=== PATIENT | female | born 1970 | race Caucasian/White ===

== ENCOUNTER 2018-10-28 16:43 | Emergency (ER) | payer MEDICAID ==
[~2018-10-28] VITALS: Ht 160 cm; Wt 63.6 kg
[2018-10-28 16:45] VITALS: Ht 160 cm; Wt 63.6 kg
[2018-10-28] MEDS ORDERED: LITHOBID 300 M300 MG PO (16:48)
[2018-10-28] MEDS ORDERED: IBUPROFEN600 MG PO (16:48)
[2018-10-28] MEDS ORDERED: NEURONTIN 300300 MG PO (16:48)
[2018-10-28] MEDS ORDERED: XANAX1 MG PO (16:49)
[2018-10-28] MEDS ORDERED: MOBIC7.5 MG PO (16:49)
[2018-10-28] MEDS ORDERED: DEMEROL100 MG PO (16:50)
[2018-10-28 19:26] VITALS: BP 126/78
[2018-10-28] MEDS ORDERED: TORADOL10 MG PO (20:49)
== END 2018-10-28 21:02 | disposition home or self-care (01) ==
LOC: D.ER 16:43
DX: M54.2 Cervicalgia (principal); R51 Headache; M25.562 Pain in left knee; M54.5 Low back pain; V49.9XXA Car occupant (driver) (passenger) injured in unspecified traffic accident, initial encounter; Y93.89 Activity, other specified; Y92.410 Unspecified street and highway as the place of occurrence of the external cause